=== PATIENT | female | born 1940 | race Two or more races ===

== ENCOUNTER 2018-12-18 10:09 | Outpatient (CLI) | payer OTHER ==
[~2018-12-18] VITALS: Ht 157.5 cm; Wt 68.9 kg
[~2018-12-18 10:09] MED LIST: INTESTINEX680 MG PO; LASIX20 MG PO; PLAVIX75 MG PO; PROTONIX40 M1 PO; QUESTRAN PACKET4 GM PO; TRICOR145 MG PO; ULTRACET PO
== END 2018-12-18 10:25 | disposition home or self-care (01) ==
LOC: OFIC 805 10:09
DX: J34.1 Cyst and mucocele of nose and nasal sinus (principal); J30.89 Other allergic rhinitis; R09.81 Nasal congestion

== ENCOUNTER 2019-02-20 08:04 | Emergency (ER) | payer OTHER ==
[~2019-02-20] VITALS: Ht 157.5 cm; Wt 72.6 kg
[2019-02-20] MEDS ORDERED: CIPRO500 MG PO (14:07)
[2019-02-20] MEDS ORDERED: INTESTINEX680 M1 PO ×2 (14:07→14:08)
[2019-02-20] MEDS ORDERED: ULTRACET PO ×2 (14:07→14:08)
[2019-02-20] MEDS ORDERED: FLAGYL500MG PO (14:07)
== END 2019-02-20 18:05 | disposition home or self-care (01) ==
LOC: ER 08:04
DX: R10.32 Left lower quadrant pain (principal)

== ENCOUNTER 2021-04-23 00:12 | Emergency (ER) | payer OTHER ==
[~2021-04-23] VITALS: Ht 160 cm; Wt 67.1 kg
[~2021-04-23 00:12] MED LIST changes: +CIPRO500 MG PO; +FLAGYL500MG PO; +INTESTINEX680 M1 PO
[2021-04-23] MEDS ORDERED: NASAL MIST126 ML (00:23)
[2021-04-23] MEDS ORDERED: LEVOTHYROXINE25 MCG (00:23)
[2021-04-23] MEDS ORDERED: PLAVIX75 MG (00:23)
== END 2021-04-23 02:14 | disposition home or self-care (01) ==
LOC: ER 00:12
DX: M54.59 Other low back pain (principal)

== ENCOUNTER 2021-09-25 14:49 | Emergency (ER) | payer OTHER ==
[~2021-09-25] VITALS: Ht 157.5 cm; Wt 68.0 kg
[~2021-09-25 14:49] MED LIST changes: +LEVOTHYROXINE25 MCG; +NASAL MIST126 ML; +PLAVIX75 MG
[2021-09-25] MEDS ORDERED: ACETAMINOPHEN650 M2 PO (22:26)
[2021-09-25] MEDS ORDERED: NORFLEX100MG PO (22:26)
== END 2021-09-25 22:29 | disposition home or self-care (01) ==
LOC: ER 14:49
DX: M25.552 Pain in left hip (principal)

== ENCOUNTER 2021-11-07 10:48 | Emergency (ER) | payer OTHER ==
[~2021-11-07] VITALS: Ht 157.5 cm; Wt 68.5 kg
[~2021-11-07 10:48] MED LIST changes: +ACETAMINOPHEN650 M2 PO; +NORFLEX100MG PO
[2021-11-07] MEDS ORDERED: LEVO-T25 MCG PO (12:11)
[2021-11-07] MEDS ORDERED: FENOFIBRATE48 MG PO (12:11)
[2021-11-07] MEDS ORDERED: CLOPIDOGREL BIS75 MG PO (12:12)
== END 2021-11-07 18:53 | disposition home or self-care (01) ==
LOC: ER 10:48
DX: K57.32 Diverticulitis of large intestine without perforation or abscess without bleeding (principal); K62.5 Hemorrhage of anus and rectum; Z88.6 Allergy status to analgesic agent

== ENCOUNTER 2025-04-15 02:20 | Inpatient (IN) | payer OTHER ==
[~2025-04-15] VITALS: Ht 157.5 cm; Wt 63.5 kg
[~2025-04-15 02:20] MED LIST changes: +CLOPIDOGREL BIS75 MG PO; +FENOFIBRATE48 MG PO; +LEVO-T25 MCG PO; +LEVOTHYROXINE25 MCG PO; +LIPITOR40 M1 PO; +LOSARTAN POTASS25 MG PO
--- NOTE | 2025-04-15 02:53 | NUR ---
PACIENTE ALERTA Y ORIENTADA X3, INDICA QUE A LAS 10PM COMENZO CON TEMBLORES Y DIFICULTAD PARA ARTICULAR LAS PALBRAS. INDICA QUE EN MIRIAM DEL 2024 ESTUVO HOSPITALIZADA DEBIDO A LO MISMO. SE REALIZA EKG Y SE MONITOREAN VS.
--- NOTE | 2025-04-15 04:13 | NUR ---
SE ORIENTA A PACIENTE SOBRE TRATAMIENTO MEDICO, REFIERE ENTENDER. SE COLECTAN MUESTRAS DE LABORATORIO BAJO MEDIDAS ASEPTICAS. SE COORDINA MEGAN X. PACIENTE MANEJADA POR .
[2025-04-15 04:19] LABS: BASO % 0.4 % (0.1-1.2); EOS # 0.04 (0.04-0.54); EOS % 0.3 % (0.7-7.0); LYMPH # 0.63 (1.18-3.74); LYMPH % 5.0 % (19.3-53.1); MEAN PLATELET VOLUME 9.00 fl (9.4-12.4); MONO # 0.61 (0.24-0.82); MONO % 4.9 % (4.7-12.5); NEUT # 11.11 (1.56-6.13); NEUT % 89.0 % (34.0-71.1); RED CELL DISTRIBUTION WIDTH 13.1 % (11.6-14.4)
[2025-04-15 04:41] LABS: INR 1.0
[2025-04-15 04:43] LABS: ALT/SGPT 25.0 U/L (12-78); AST/SGOT 20.0 U/L (15-37); BILIRUBIN TOTAL 0.84 mg/dL (0.3-1.2); BUN CREA RATIO 31.0 (7.0-25.0); CREATININE SERUM 0.8 mg/dL (0.55-1.02); GFR 68.5; GLOBULINA 3.5 G/DL (2.4-3.5); GLUCOSE FASTING 123.0 mg/dL (65-100); OSMOLALITY SERUM 287.0 MOSM/KG (275-295)
[2025-04-15 05:34] LABS: URINE APPEARANCE Clear; URINE BILIRRUBIN Negative (NEGATIVE); URINE BLOOD Negative; URINE COLOR Yellow; URINE GLUCOSE Negative (NEGATIVE); URINE KETONE Negative (NEGATIVE); URINE LEUKOCYTE Negative; URINE NITRATE Negative; URINE PROTEIN Negative (NEGATIVE); URINE UROBILINOGEN 0.2 E.U./dl
[2025-04-15 05:37] LABS: URINE BACTERIA 88.7 uL (0.0-1933); URINE EPITHELIAL CELLS 4.4 uL (0.0-38.8); URINE WBC 22.4 uL (0.0-23.2)
[2025-04-15 05:53] LABS: COVID-19 AG NEGATIVE (NEGATIVE)
[2025-04-15 06:31] LABS: URINE CAST 0.00 uL (0.0-1.40); URINE RBC 0.5 uL (0.0-20.8)
--- NOTE | 2025-04-15 08:03 | NUR ---
SE RECIBNE PTE FEMEMINA DE 84 YRS ALERTA CONCIENTE Y TRANQUILA EN DEVIN CON BRABDAS ELEVADA , PTE ACOMPANADA DE FAMILAR. PSE LE GEORGINA S/V Y SE DOCUMENTA. SE MANTIENE BAJO OBSERACION . PTE AL MOMENTO CHALO DE DOLOR.
[2025-04-15] MEDS ORDERED: FAMOTIDINE/PF 20 MG/2 ML VIAL IV PUSH SCH (10:55)
[2025-04-15] MEDS ORDERED: ONDANSETRON HCL 2 MG/ML VIAL IV PRN (11:00)
[2025-04-15] MEDS ORDERED: 0.9 % SODIUM CHLORIDE 1,000 ML IV SCH (11:00)
[2025-04-15] MEDS ORDERED: ENALAPRILAT DIHYDRATE 1.25 MG/ML VIAL IV PRN (11:00)
[2025-04-15] MEDS ORDERED: ENOXAPARIN SODIUM 40 MG/0.4 ML SYRINGE SUBCUTANEO SCH (11:20)
[2025-04-15] MEDS ORDERED: CLOPIDOGREL BISULFATE 75 MG TABLET PO SCH (11:30)
[2025-04-15] MEDS ORDERED: ENOXAPARIN SODIUM 40 MG/0.4 ML SYRINGE SUBCUTANEO ONE (14:34)
[2025-04-15] MEDS ORDERED: CLOPIDOGREL BISULFATE 75 MG TABLET PO ONE (14:34)
[2025-04-15] MEDS ORDERED: FAMOTIDINE/PF 20 MG/2 ML VIAL ONE (14:35)
[2025-04-15 16:47] VITALS: BP 142/79
[2025-04-15] MEDS ORDERED: DONEPEZIL HCL 5 MG TABLET PO SCH (17:00)
[2025-04-15] MEDS ORDERED: ATORVASTATIN CALCIUM 40 MG TABLET PO SCH (17:00)
[2025-04-15 18:07] VITALS: BP 158/82; O2SAT 97
[2025-04-15] MEDS ORDERED: LevETIRAcetam 500 MG TAB. PO SCH (19:19)
[2025-04-15] MEDS ORDERED: DOCUSATE SODIUM 100MG CAP PO SCH (21:00)
[2025-04-16] MEDS ORDERED: DEXAMETHASONE SODIUM PHOSPHATE 4 MG/ML VIAL IV SCH
[2025-04-16 01:05] VITALS: BP 108/69; O2SAT 96
[2025-04-16] MEDS ORDERED: LEVOTHYROXINE SODIUM 25 MCG TABLET PO SCH (06:00)
[2025-04-16 08:00] VITALS: BP 146/85; O2SAT 97
[2025-04-16 08:15] LABS: BASO % 0.5 % (0.1-1.2); EOS # 0.27 (0.04-0.54); EOS % 3.4 % (0.7-7.0); LYMPH # 2.09 (1.18-3.74); LYMPH % 26.3 % (19.3-53.1); MEAN PLATELET VOLUME 9.20 fl (9.4-12.4); MONO # 0.77 (0.24-0.82); MONO % 9.7 % (4.7-12.5); NEUT # 4.77 (1.56-6.13); NEUT % 59.8 % (34.0-71.1); RED CELL DISTRIBUTION WIDTH 13.5 % (11.6-14.4)
[2025-04-16] MEDS ORDERED: LOSARTAN POTASSIUM 25 MG TABLET PO SCH (09:00)
[2025-04-16 09:16] LABS: ALT/SGPT 19.0 U/L (12-78); AST/SGOT 16.0 U/L (15-37); BILIRUBIN TOTAL 0.85 mg/dL (0.3-1.2); BILIRUBIN,CONJUGATED 0.21 mg/dL (0.0-0.2); BUN CREA RATIO 20.0 (7.0-25.0); CHOL HDL RATIO 2.8 (0-5.0); CREATININE SERUM 0.59 mg/dL (0.55-1.02); GFR 97.34; GLOBULINA 2.7 G/DL (2.4-3.5); GLUCOSE FASTING 97.0 mg/dL (65-100); HDL 62.0 mg/dl (40-60); LDL 89.0 mg/dl (0-130); OSMOLALITY SERUM 292.0 MOSM/KG (275-295); T4 FREE 0.99 NG/ML (0.76-1.46); TSH 4.33 uIU/mL (0.358-3.74); VLDL 22.0 (0-39)
[2025-04-16 10:16] LABS: ERYTHROCYTE SEDIMENTATION RATE 19 mm/hr (0-30)
[2025-04-16 14:57] LABS: INR 1.04
[2025-04-16 16:00] VITALS: BP 156/84; O2SAT 95
[2025-04-16 19:21] VITALS: O2SAT 90
[2025-04-17 00:30] VITALS: BP 125/81; O2SAT 96
[2025-04-17 08:27] VITALS: BP 158/95; O2SAT 96
[2025-04-17 16:49] VITALS: BP 142/83; O2SAT 98
[2025-04-18 01:20] VITALS: BP 125/78; O2SAT 98
[2025-04-18 07:52] LABS: BASO % 0.1 % (0.1-1.2); EOS # 0.00 (0.04-0.54); EOS % 0.0 % (0.7-7.0); LYMPH # 1.32 (1.18-3.74); LYMPH % 9.0 % (19.3-53.1); MEAN PLATELET VOLUME 10.00 fl (9.4-12.4); MONO # 0.84 (0.24-0.82); MONO % 5.7 % (4.7-12.5); NEUT # 12.47 (1.56-6.13); NEUT % 84.8 % (34.0-71.1); RED CELL DISTRIBUTION WIDTH 13.1 % (11.6-14.4)
[2025-04-18 07:59] LABS: ALT/SGPT 25.0 U/L (12-78); AST/SGOT 21.0 U/L (15-37); BILIRUBIN TOTAL 0.55 mg/dL (0.3-1.2); BUN CREA RATIO 27.0 (7.0-25.0); CREATININE SERUM 0.66 mg/dL (0.55-1.02); GFR 85.53; GLOBULINA 2.7 G/DL (2.4-3.5); GLUCOSE FASTING 105.0 mg/dL (65-100); OSMOLALITY SERUM 287.0 MOSM/KG (275-295)
[2025-04-18 08:00] VITALS: BP 161/85; O2SAT 96
[2025-04-18 16:00] VITALS: BP 147/90; O2SAT 98
[2025-04-18] MEDS ORDERED: VANCOMYCIN HCL 1,000 MG VIAL IV SCH (17:20)
[2025-04-19 01:06] VITALS: BP 114/75; O2SAT 96
[2025-04-19 09:27] VITALS: BP 156/94; O2SAT 97
[2025-04-19] MEDS ORDERED: FLUMAZENIL 0.5 MG/5 ML ML IV STA (11:31)
[2025-04-19] MEDS ORDERED: NALOXONE HCL 0.4 MG/ML AMPUL IV STA (11:31)
[2025-04-19] MEDS ORDERED: fentaNYL CITRATE 50 MCG/ML AMPUL IV PUSH ONE (11:45)
[2025-04-19] MEDS ORDERED: MIDAZOLAM HCL 2 MG/2 ML VIAL IV ONE (11:45)
[2025-04-19] MEDS ORDERED: VANCOMYCIN HCL 1,000 MG VIAL ONE (14:29)
[2025-04-19 18:22] VITALS: BP 136/78; O2SAT 94
[2025-04-20 00:19] VITALS: BP 168/96; O2SAT 96
[2025-04-20] MEDS ORDERED: VANCOMYCIN HCL 1,000 MG VIAL ONE ×2 (02:57→14:20)
[2025-04-20 05:12] LABS: BASO % 0.1 % (0.1-1.2); EOS # 0.12 (0.04-0.54); EOS % 1.2 % (0.7-7.0); LYMPH # 2.86 (1.18-3.74); LYMPH % 29.2 % (19.3-53.1); MEAN PLATELET VOLUME 8.60 fl (9.4-12.4); MONO # 1.04 (0.24-0.82); MONO % 10.6 % (4.7-12.5); NEUT # 5.69 (1.56-6.13); NEUT % 58.2 % (34.0-71.1); RED CELL DISTRIBUTION WIDTH 13.0 % (11.6-14.4)
[2025-04-20 05:45] LABS: ALT/SGPT 51.0 U/L (12-78); AST/SGOT 35.0 U/L (15-37); BILIRUBIN TOTAL 0.58 mg/dL (0.3-1.2); BUN CREA RATIO 24.0 (7.0-25.0); CREATININE SERUM 0.59 mg/dL (0.55-1.02); GFR 97.34; GLOBULINA 2.3 G/DL (2.4-3.5); GLUCOSE FASTING 81.0 mg/dL (65-100); OSMOLALITY SERUM 286.0 MOSM/KG (275-295)
[2025-04-20 08:00] VITALS: BP 122/79; O2SAT 95
[2025-04-20] MEDS ORDERED: DEXAMETHASONE 4 MG TABLET PO SCH (09:00)
[2025-04-20] MEDS ORDERED: PANTOPRAZOLE SODIUM 40 MG TABLET.DR PO SCH (09:00)
[2025-04-20 11:08] LABS: CA 125 14.8 U/mL (0.0-38.1); CA 15-3 13.2 U/mL (0.0-25.0); CA 27.29 21.7 U/mL (0.0-38.6)
[2025-04-20 16:30] VITALS: BP 114/77; O2SAT 96
[2025-04-21 01:56] VITALS: BP 118/73; O2SAT 96
[2025-04-21] MEDS ORDERED: VANCOMYCIN HCL 1,000 MG VIAL ONE (02:12)
[2025-04-21] MEDS ORDERED: DEXAMETHASONE4 MG PO (08:28)
[2025-04-21] MEDS ORDERED: KEPPRA500 MG PO (08:29)
[2025-04-21] MEDS ORDERED: POTASSIUM BICARBONATE/CIT AC 25 MEQ TABLET.EFF PO NR (08:45)
[2025-04-21 11:11] LABS: CA 19-9 8.0 U/mL (0-35)
== END 2025-04-21 13:34 | disposition home or self-care (01) | DRG 91 ==
LOC: ER 02:21 → SURH 11:49 → SEC-K 11:49 → SURH 17:14
PROVIDERS: General Practice; Internal Medicine Hematology & Oncology; Internal Medicine Infectious Disease; ADMIT Internal Medicine; ATTEND Internal Medicine
PROC: BW28ZZZ Computerized Tomography (CT Scan) of Head (ICD-10-PCS; principal; 2025-04-15)
PROC: BW38ZZZ Magnetic Resonance Imaging (MRI) of Head (ICD-10-PCS; 2025-04-15)
PROC: BW25ZZZ Computerized Tomography (CT Scan) of Chest, Abdomen and Pelvis (ICD-10-PCS; 2025-04-16)
PROC: BW25YZZ Computerized Tomography (CT Scan) of Chest, Abdomen and Pelvis using Other Contrast (ICD-10-PCS; 2025-04-16)
PROC: 4A12X4Z Monitoring of Cardiac Electrical Activity, External Approach (ICD-10-PCS; 2025-04-16)
PROC: B246ZZZ Ultrasonography of Right and Left Heart (ICD-10-PCS; 2025-04-18)
PROC: 0DJD8ZZ Inspection of Lower Intestinal Tract, Via Natural or Artificial Opening Endoscopic (ICD-10-PCS; 2025-04-19)
PROC: BW28ZZZ Computerized Tomography (CT Scan) of Head (ICD-10-PCS; 2025-04-21)
DX: R47.01 Aphasia (principal); I63.9 Cerebral infarction, unspecified; G45.9 Transient cerebral ischemic attack, unspecified; K57.30 Diverticulosis of large intestine without perforation or abscess without bleeding; D49.6 Neoplasm of unspecified behavior of brain; E78.00 Pure hypercholesterolemia, unspecified; I73.9 Peripheral vascular disease, unspecified; J30.9 Allergic rhinitis, unspecified; I48.91 Unspecified atrial fibrillation; I10 Essential (primary) hypertension; E03.9 Hypothyroidism, unspecified; Z98.890 Other specified postprocedural states; Z86.79 Personal history of other diseases of the circulatory system
CPT/HCPCS: 70553

== ENCOUNTER → 2025-05-04 | Outpatient (CLI) | payer OTHER ==
[~2025-05-04] MED LIST changes: +DEXAMETHASONE4 MG PO; +KEPPRA500 MG PO
== END | disposition home or self-care (01) ==
LOC: NUCLEAR 07:29
PROVIDERS: ATTEND Psychiatry & Neurology Clinical Neurophysiology
DX: F03.90 Unspecified dementia, unspecified severity, without behavioral disturbance, psychotic disturbance, mood disturbance, and anxiety (principal); R47.01 Aphasia
CPT/HCPCS: 78803; A9557

== ENCOUNTER 2025-05-24 10:13 | Inpatient (IN) | payer OTHER ==
[~2025-05-24] VITALS: Ht 157.5 cm; Wt 64.4 kg
[2025-05-24] MEDS ORDERED: 0.9 % SODIUM CHLORIDE 1,000 ML IV SCH (10:45)
[2025-05-24] MEDS ORDERED: VITAMIN B COMPLEX/LYSINE 15 ML BLIST.PACK PO ONE (10:45)
[2025-05-24] MEDS ORDERED: 0.9 % SODIUM CHLORIDE 1,000 ML IV ONE (10:45)
[2025-05-24] MEDS ORDERED: FAMOTIDINE/PF 20 MG in 0.9 % SODIUM CHLORIDE 8 ML IV PUSH ONE (10:45)
--- NOTE | 2025-05-24 11:16 | NUR ---
SE RECIBE FEMINA EN ESTADO LETARGICO EN AMBULANCIA EN COMPANIA DE HIJA. HIJA DE PACIENTE REFIERE TRAER A PACIENTE POR HIPOTENSION. PACIENTE SE ENCUENTRA EN HOSPICIO CON DX DE FIBROSIS PULMONAR. SE MIDEN S/V SE REALIZA EKG Y DR TOWNSEND EVALUA A PACIENTE. SE UBICA PACIENTE EN UNIDAD DE CHEST PAIN CONECTADA A MONITOR CARDIACO Y OXIMETRIA DE PULSO. SE COLOCA CANULA NASAL A 3LT/MIN. SE COLECTAN MUESTRAS DE LABORATORIO Y SE CANALIZA A PACIENTE BAJO MEDIDAS ASEPTICAS.
[2025-05-24 11:18] LABS: BASO % 0.3 % (0.1-1.2); EOS # 0.00 (0.04-0.54); EOS % 0.0 % (0.7-7.0); LYMPH # 1.69 (1.18-3.74); LYMPH % 15.0 % (19.3-53.1); MEAN PLATELET VOLUME 10.20 fl (9.4-12.4); MONO # 0.67 (0.24-0.82); MONO % 6.0 % (4.7-12.5); NEUT # 8.23 (1.56-6.13); NEUT % 73.1 % (34.0-71.1); RED CELL DISTRIBUTION WIDTH 14.7 % (11.6-14.4)
--- NOTE | 2025-05-24 11:22 | NUR ---
HIJA DE PACIENTE FIRMA DIRECTRICES ANTICIPADAS DNR+DNI. SE COLOCA DOCUMENTO FIRMADO EN RECORD DE PACIENTE.
[2025-05-24 11:45] LABS: ALT/SGPT 427.0 U/L (12-78); AST/SGOT 121.0 U/L (15-37); BILIRUBIN TOTAL 0.58 mg/dL (0.3-1.2); CREATININE SERUM 1.1 mg/dL (0.55-1.02); GFR 47.43; GLOBULINA 3.0 G/DL (2.4-3.5); GLUCOSE FASTING 152.0 mg/dL (65-100)
[2025-05-24] MEDS ORDERED: MULTIVIT INFUSN,ADULT 4,VIT K 10 ML VIAL IV ONE (11:45)
[2025-05-24 11:46] LABS: INR 1.11
[2025-05-24 11:49] LABS: BUN CREA RATIO 115.0 (7.0-25.0); OSMOLALITY SERUM 338.0 MOSM/KG (275-295)
[2025-05-24 12:26] LABS: BAND MAN 4.0 %; LYMPHOCYTE MAN 28.0 %; MONOCYTE MAN 2.0 %; NEUTROPHILS MAN 66.0 %
[2025-05-24] MEDS ORDERED: PANTOPRAZOLE SODIUM 80 MG in 0.9 % SODIUM CHLORIDE 100 ML IV SCH (12:45)
[2025-05-24] MEDS ORDERED: PANTOPRAZOLE SODIUM 40 MG/VIAL VIAL IV PUSH ONE (12:45)
--- NOTE | 2025-05-24 13:17 | NUR ---
DR TOWNSEND ORIENTA A HIJA DE FAMILIAR SOBRE ORDEN DE TRANSFUSION DE DEVORA, LA MISMA REHUSA RECIBIR TRANSFUSIONES DE DEVORA. HIJA DE PACIENTE FIRMA DOCUMENTO DE DIRECTRICES ANTICIPADAS PARA NO TRANSFUSIONES SANGUINEAS.
[2025-05-24] MEDS ORDERED: DEXTROSE 5 % AND 0.9 % NACL 1,000 ML IV SCH (17:30)
[2025-05-24 17:46] VITALS: BP 94/65
[2025-05-24] MEDS ORDERED: MORPHINE SULFATE 2 MG/ML SYRINGE IV PRN (18:00)
[2025-05-24 21:15] VITALS: BP 90/58; O2SAT 100
[2025-05-25] MEDS ORDERED: DIPHENHYDRAMINE HCL 50 MG/ML VIAL 1ML IV ONE (03:00)
[2025-05-25 03:40] VITALS: BP 100/65; O2SAT 96
[2025-05-25] MEDS ORDERED: PANTOPRAZOLE SODIUM 40 MG/VIAL VIAL IV SCH (09:00)
[2025-05-25 09:47] VITALS: BP 98/63; O2SAT 98
[2025-05-25 16:17] LABS: URINE APPEARANCE Turbid; URINE BILIRRUBIN Negative (NEGATIVE); URINE BLOOD Small; URINE COLOR Yellow; URINE GLUCOSE Negative (NEGATIVE); URINE KETONE Negative (NEGATIVE); URINE LEUKOCYTE Small; URINE NITRATE Positive; URINE PROTEIN Trace (NEGATIVE); URINE UROBILINOGEN 0.2 E.U./dl
[2025-05-25 16:21] LABS: URINE EPITHELIAL CELLS 14.7 uL (0.0-38.8); URINE RBC 12.9 uL (0.0-20.8); URINE WBC 140.1 uL (0.0-23.2)
[2025-05-25 16:37] LABS: URINE CAST 1.31 uL (0.0-1.40)
[2025-05-25 16:38] LABS: URINE CRYSTALS MANY /HPF
[2025-05-25 17:39] VITALS: BP 91/60
[2025-05-26] VITALS (10 sets, daily range): BP systolic 96–110; BP diastolic 60–66; O2SAT 95–100
[2025-05-26] MEDS ORDERED: DEXAMETHASONE SODIUM PHOSPHATE 4 MG/ML VIAL IV ONE (04:00)
[2025-05-26] MEDS ORDERED: DEXAMETHASONE SODIUM PHOSPHATE 4 MG/ML VIAL IV SCH (09:00)
[2025-05-27] VITALS (9 sets, daily range): BP systolic 98–134; BP diastolic 64–82; O2SAT 90–100
[2025-05-27 01:26] LABS: BASO % 0.4 % (0.1-1.2); EOS # 0.00 (0.04-0.54); EOS % 0.0 % (0.7-7.0); LYMPH # 1.10 (1.18-3.74); LYMPH % 11.4 % (19.3-53.1); MEAN PLATELET VOLUME 10.50 fl (9.4-12.4); MONO # 0.46 (0.24-0.82); MONO % 4.8 % (4.7-12.5); NEUT # 7.43 (1.56-6.13); NEUT % 76.8 % (34.0-71.1)
[2025-05-27 01:30] LABS: RED CELL DISTRIBUTION WIDTH 18.2 % (11.6-14.4)
[2025-05-27 01:53] LABS: BUN CREA RATIO 77.0 (7.0-25.0); CREATININE SERUM 0.53 mg/dL (0.55-1.02); GFR 110.17; GLUCOSE FASTING 145.0 mg/dL (65-100)
[2025-05-27 01:58] LABS: BAND MAN 1.0 %; LYMPHOCYTE MAN 20.0 %; MONOCYTE MAN 3.0 %; NEUTROPHILS MAN 76.0 %
[2025-05-27 02:06] LABS: OSMOLALITY SERUM 339.0 MOSM/KG (275-295)
[2025-05-28] VITALS (8 sets, daily range): BP systolic 121–149; BP diastolic 77–85; O2SAT 97–100
[2025-05-28] MEDS ORDERED: MORPHINE SULFATE 2 MG/ML SYRINGE IV PRN (07:00)
[2025-05-29] VITALS (8 sets, daily range): BP systolic 96–146; BP diastolic 65–90; O2SAT 97–100
[2025-05-29] MEDS ORDERED: [UNRECOGNIZED DRUG - OTHER] CENTRAL SCH (10:30)
[2025-05-29] MEDS ORDERED: AA 3.31 %/D9.8W/FAT/E-LYTES 10 2,053 ML CENTRAL SCH (17:00)
[2025-05-30 02:42] VITALS: BP 84/57; O2SAT 95
[2025-05-30 05:45] VITALS: O2SAT 98
== END 2025-05-30 12:55 | disposition expired | DRG 55 ==
LOC: ER 10:13 → SEC-K 17:30 → MEDJ 18:03
PROVIDERS: General Practice; ADMIT Internal Medicine; ATTEND Internal Medicine
PROC: 02HV33Z Insertion of Infusion Device into Superior Vena Cava, Percutaneous Approach (ICD-10-PCS; principal; 2025-05-25)
PROC: 4A12X4Z Monitoring of Cardiac Electrical Activity, External Approach (ICD-10-PCS; 2025-05-25)
DX: C71.2 Malignant neoplasm of temporal lobe (principal); K92.2 Gastrointestinal hemorrhage, unspecified; R47.01 Aphasia; D64.89 Other specified anemias; Z86.73 Personal history of transient ischemic attack (TIA), and cerebral infarction without residual deficits; E78.00 Pure hypercholesterolemia, unspecified; I73.89 Other specified peripheral vascular diseases; E03.9 Hypothyroidism, unspecified; R63.0 Anorexia; I48.91 Unspecified atrial fibrillation; I10 Essential (primary) hypertension; R60.0 Localized edema; Z66 Do not resuscitate